=== PATIENT | male | born 2000 | race African-American/Black ===

== ENCOUNTER 2020-01-30 15:46 | Outpatient (REF) | payer OTHER, SELFPAY ==
[2020-01-30 18:19] LABS: IDNOW Serial# 55D5AD1C
[2020-01-30 18:20] LABS: COVID-19 Test Negative (Negative)
== END 2020-01-30 15:47 | disposition home or self-care (01) ==
LOC: HO.EMPCOV 15:46
PROVIDERS: Visit Provider Internal Medicine
DX: Z20.828 Contact with and (suspected) exposure to other viral communicable diseases (principal)
CPT/HCPCS: 87635; C9803

== ENCOUNTER 2020-02-06 13:47 | Outpatient (REF) | payer OTHER, SELFPAY ==
[2020-02-06 14:11] LABS: COVID-19 Test Negative (Negative)
== END 2020-02-06 13:48 | disposition home or self-care (01) ==
LOC: HO.EMPCOV 13:47
PROVIDERS: Visit Provider Internal Medicine
DX: Z20.828 Contact with and (suspected) exposure to other viral communicable diseases (principal)
CPT/HCPCS: 87635; C9803

== ENCOUNTER 2020-10-25 17:20 | Emergency (ER) | payer BC, MEDICAID, SELFPAY ==
[2020-10-25 17:38] VITALS: BP 125/73; PULSE 103; RESP 18; TEMP 36.4; O2SAT 99; BMI 30.1
--- NOTE | 2020-10-25 20:49 | ED_ITS ---
HPI - Eye Problem General Chief complaint: Eye Problems Stated complaint: eye issues Time Seen by Provider: 10/25/20 20:49 Source: patient Mode of arrival: ambulatory Limitations: no limitations History of Present Illness HPI Narrative: Patient is a 20-year-old male who had an adenoidectomy at [facility] this morning, he is here complaining of blood pooling in his eyes. He states he was discharged around 930 and went home in a few hours later he noticed blood in the corners of both eyes, he denies any pain but states he feels like his eyes or straining and it is giving him a headache. He denies any changes in his vision. He called the hospital because he was concerned and they told him to go to the emergency department. Related Data Allergies Allergy/AdvReac Type Severity Reaction Status Date / Time No Known Allergies Allergy Verified 10/25/20 17:37 [No Known Allergies*] cornflower Allergy Unknown Rash Uncoded 02/17/18 00:00 Review of Systems Review of Systems: Yes all other systems are reviewed and are negative [facility] Past Medical History Surgical History No pertinent past surgical history Family History Family History Mother No problems noted. Father No problems noted. Social History Social History Advance Directives: No Advance Directives Information Provided: No Physical Exam Vital Signs: Vital Signs: Last Vital Signs Temp 97.6 F 10/25/20 17:38 Pulse 103 H 10/25/20 17:38 Resp 18 10/25/20 17:38 BP 125/73 10/25/20 17:38 Pulse Ox 99 10/25/20 17:38 Body Mass Index 30.1 Const: General: cooperative, healthy appearing, comfortable and no acute distress Nutritional Appearance: average body habitus Orientation/consciousness: patient oriented x3 Neuro: General: patient oriented x3 Course Course Course Narrative: Patient is a 20-year-old male who had adenoidectomy at this morning. A few hours after returning home, he noticed blood pooling in both of his eyes any is concerned. Physical exam revealed subconjunctival hemorrhage bilaterally. Vital signs are stable. Spoke with Dr. Waldron, he believes it was caused by some kind of Valsalva, either heavy coughing for something similar when he was coming out of anesthesia, not likely any kind of bleeding from the procedure as patient is not on a blood thinner. Discharge Plan Discharge Clinical Impression: Subconjunctival hemorrhage Qualifiers: Laterality: bilateral Qualified Code(s): H11.33 - Conjunctival hemorrhage, bilateral Patient Disposition: Home, Self-Care Instructions: Subconjunctival Hemorrhage (ED) Additional Instructions: The blood in your eyes will get resorobed by body in time. If you have changes in your vision or worsening symptoms, please return to the emergency room. Referrals: Shree Waldron [Physician] - 2 days (if not better)
== END 2020-10-25 21:17 | disposition home or self-care (01) ==
PROVIDERS: Emergency Provider Emergency Medicine; PCP Physician Assistant
DX: H11.33 Conjunctival hemorrhage, bilateral (principal); Z98.890 Other specified postprocedural states
CPT/HCPCS: 99282

== ENCOUNTER 2021-08-30 10:57 | Outpatient (REF) | payer BC, SELFPAY ==
[2021-08-30 11:20] LABS: MANUAL DIFF FLAG NO
[2021-08-30 11:46] LABS: Basophils Percent Auto 0.6 % (0-2); Eosinophils Absolute Auto 0.2 X10*3/uL (0.0-0.4); Eosinophils Percent Auto 2.3 % (0-4); Hematocrit 45.3 % (42.0-52.0); Hemoglobin 14.4 g/dl (14.0-18.0); Imm Gran Abs Auto 0.04 X10*3/uL (0.00-0.03); Imm Gran Pct Auto 0.6 % (0.0-0.4); Lymphocytes Absolute Auto 2.6 X10*3/uL (1.2-4.9); Mean Corpuscular HGB Conc 31.8 g/dl (31.0-36.0); Mean Corpuscular Hemoglobin 23.6 pg (27.0-33.0); Mean Corpuscular Volume 74.1 fL (80.0-98.0); Mean Platelet Volume 9.5 fL (9.4-12.4); Monocytes Absolute Auto 0.6 X10*3/uL (0.1-1.2); Monocytes Percent Auto 8.8 % (2-11); Neutrophils Absolute Auto 3.2 x10*3/uL (2.0-8.3); Neutrophils Percent Auto 48.7 % (45-73); Platelet Count 326 X10*3/uL (160-400); Red Blood Count 6.11 X10*6/uL (4.60-5.80); Red Cell Distribution Width 14.1 % (11.0-16.0); White Blood Count 6.6 X10*3/uL (4.8-10.8)
[2021-08-30 12:14] LABS: Alanine Aminotransferase 31 U/L (0-40); Albumin Level 4.2 g/dL (3.5-5.0); Alkaline Phosphatase 65 U/L (39-117); Anion Gap 11 (12-20); Aspartate Amino Transferase 20 U/L (5-37); Bilirubin Total 0.5 mg/dL (0.0-1.0); Blood Urea Nitrogen 13 mg/dL (9-16); Calcium 9.4 mg/dL (8.4-10.2); Carbon Dioxide 25 mmol/L (22-29); Chloride 108 mmol/L (96-108); Cholesterol 190 mg/dL; Estimated Glomerular Filt Rate > 60; Glucose Random 106 mg/dL (60-115); Potassium 4.5 mmol/L (3.3-5.1); Sodium 139 mmol/L (135-145)
[2021-08-30 12:37] LABS: TSH reflex Free T4 0.29 uIU/mL (0.32-4.0)
[2021-08-30 13:09] LABS: Free T4 (Free Thyroxine) 1.04 ng/dL (0.71-1.85)
== END 2021-08-30 10:58 | disposition home or self-care (01) ==
LOC: HO.LAB 10:57
PROVIDERS: PCP Internal Medicine; Visit Provider Internal Medicine
DX: Z00.00 Encounter for general adult medical examination without abnormal findings (principal); E55.9 Vitamin D deficiency, unspecified
CPT/HCPCS: 36415; 80053; 82306; 82465; 84439; 84443; 85025